=== PATIENT | male | born 1950 | race Caucasian/White ===

== ENCOUNTER 2016-11-24 22:22 | Emergency (ER) | payer MEDICARE, OTHER ==
[2016-11-24] MEDS ORDERED: Albuterol/Ipratropium 3.0-0.5 MG/3 ML Neb Soln NEB ONE (23:10)
[2016-11-24] MEDS ORDERED: Sodium Chloride 0.9% 1,000 ML IV ONE (23:15)
[2016-11-24] MEDS ORDERED: Sodium Chloride 0.9% 2.5 ML Syringe FLUSH PRN ×2 (23:15)
[2016-11-24] MEDS ORDERED: Sodium Chloride 0.9% 10 ML Syringe FLUSH PRN ×2 (23:15)
[2016-11-25 00:01] LABS: CHLORIDE,CL 103 mmol/L (98-110); SODIUM,NA 139 mmol/L (136-146)
[2016-11-25] MEDS ORDERED: methylPREDNISolone Sodium Succinate 125 MG/2 ML SDV IVPUSH ONE (01:20)
[2016-11-25] MEDS ORDERED: Levofloxacin 250 MG Tab PO ONE (01:25)
--- NOTE | 2016-11-25 01:29 | EDM.PDOC ---
ED HISTORY OF PRESENT ILLNESS - General Chief Complaint: Respiratory Problem Stated Complaint: SHORTNESS OF BREATH Time Seen by Provider: 11/24/16 22:24 Source of Information: Reports: Patient History Limitations: Reports: No limitations - History of Present Illness INITIAL COMMENTS - FREE TEXT/NARRATIVE: 58-year-old male with a history of COPD now presents to the emergency department complaining of wheezing refractory to home meds and patient uses nebulizer treatment at and had suboptimal relief. Denies chest pain. Fevers chills sweats or shaking chills. Patient does report productive cough. - Related Data Allergies/ADRs: Allergies Allergy/AdvReac Type Severity Reaction Status Date / Time No Known Allergies Allergy Verified 11/24/16 22:38 Home Meds: Home Meds Levofloxacin [Levaquin] 750 mg PO DAILY #5 tablet 11/25/16 [Rx] Prednisone [IMW: predniSONE] 60 mg PO WITHBREAKFAST #5 tab 11/25/16 [Rx] Past Medical History HEENT History: Reports: Impaired vision Other HEENT History: glasses Cardiovascular History: Reports: Hypertension Respiratory History: Reports: Other (see below) Other Respiratory History: "frozen diaphram" used nebs at home recently for sob/ wheezing Musculoskeletal History: Reports: Back pain, chronic - Infectious Disease History Infectious Disease History: Reports: Chicken pox, Measles, Mumps - Past Surgical History Musculoskeletal Surgical History: Reports: Other (see below) Other Musculoskeletal Surgeries/Procedures:: back and knee surgery Social & Family History - Family History Family Medical History: Noncontributory - Tobacco Use Smoking Status *Q: Former Smoker Tobacco Use Comment: "haven't smoked since I was a kid" - Caffeine Use Caffeine Use: Reports: Coffee - Recreational Drug Use Recreational Drug Use: No ED ROS GENERAL - Review of Systems Review Of Systems: See Below (Per history of present illness) ED EXAM, GENERAL - Physical Exam Exam: See Below (Per history of present illness) Course - Vital Signs Text/Narrative:: Signs and symptoms consistent with COPD exacerbation in a patient with a known history of this.. Patient with mild tachypnea and bilateral bronchospasm. Normal pulse ox on room air. Chest x-ray unremarkable. EKG benign. Full workup with elevated white blood cell count at 18 and BUN and creatinine 25 and 1.0. IV fluids given. Patient well-appearing ambulate around the emergency department requesting discharge home after treatment. He feels vastly improved and is comfortable with outpatient management. Strict return precautions given Last Recorded V/S: Last Vital Signs Temp 37.6 C 11/24/16 22:31 Pulse 79 11/24/16 22:31 Resp 28 H 11/24/16 22:31 BP 168/78 H 11/24/16 22:31 Pulse Ox 94 L 11/24/16 22:31 - Orders/Labs/Meds Orders: Active Orders 24 hr Category Date Time Status EKG Documentation Completion [RC] STAT Care 11/24/16 23:15 Active Peripheral IV Care [RC] . DIRECTED Care 11/24/16 23:15 Active RT Aerosol Therapy [RC] ASDIRECTED Care 11/24/16 23:11 Active Chest 1V Frontal [CR] Stat Exams 11/24/16 23:15 Taken Sodium Chloride 0.9% [Saline Flush] Med 11/24/16 23:15 Active 10 ml FLUSH ASDIRECTED PRN Sodium Chloride 0.9% [Saline Flush] Med 11/24/16 23:15 Active 10 ml FLUSH ASDIRECTED PRN Sodium Chloride 0.9% [Saline Flush] Med 11/24/16 23:15 Active 2.5 ml FLUSH ASDIRECTED PRN Sodium Chloride 0.9% [Saline Flush] Med 11/24/16 23:15 Active 2.5 ml FLUSH ASDIRECTED PRN Peripheral IV Insertion Adult [OM.PC] Stat Oth 11/24/16 23:15 Ordered Medication Orders Sodium Chloride (Saline Flush) 10 ml FLUSH ASDIRECTED PRN PRN Reason: Keep Vein Open Sodium Chloride (Saline Flush) 2.5 ml FLUSH ASDIRECTED PRN PRN Reason: Keep Vein Open Sodium Chloride (Saline Flush) 10 ml FLUSH ASDIRECTED PRN PRN Reason: Keep Vein Open Sodium Chloride (Saline Flush) 2.5 ml FLUSH ASDIRECTED PRN PRN Reason: Keep Vein Open Labs: Laboratory Tests 11/24/16 11/24/16 11/24/16 Range/Units 23:30 23:30 23:30 WBC 18.59 H (4.0-11.0) K/uL RBC 5.14 (4.50-5.90) M/uL Hgb 14.8 (13.0-17.0) g/dL Hct 44.6 (38.0-50.0) % MCV 86.8 (80.0-98.0) fL MCH 28.8 (27.0-32.0) pg MCHC 33.2 (31.0-37.0) g/dL RDW Std Deviation 45.8 (28.0-62.0) fl RDW Coeff of Alex 15 (11.0-15.0) % Plt Count 164 (150-400) K/uL MPV 9.60 (7.40-12.00) fL Neut % (Auto) 68.5 (48.0-80.0) % Lymph % (Auto) 23.0 (16.0-40.0) % Lee % (Auto) 7.3 (0.0-15.0) % Eos % (Auto) 0.9 (0.0-7.0) % Baso % (Auto) 0.3 (0.0-1.5) % Neut # 12.7 H (1.4-5.7) K/uL Lymph # 4.3 H (0.6-2.4) K/uL Lee # 1.4 H (0.0-0.8) K/uL Eos # 0.2 (0.0-0.7) K/uL Baso # 0.1 (0.0-0.1) K/uL Nucleated RBC % 0.0 /100WBC Nucleated RBCs # 0 K/uL ABG pH (7.35-7.45) ABG pCO2 (35-45) mmHG ABG pO2 (75-100) mmHG ABG HCO3 (22-26) mEq/L ABG Total CO2 ABG Base Excess (-2.0-2.0) Sodium 139 (136-146) mmol/L Potassium 4.4 (3.5-5.1) mmol/L Chloride 103 (98-110) mmol/L Carbon Dioxide 24 (21-31) mmol/L BUN 25 H (6.0-23.0) mg/dL Creatinine 1.0 (0.6-1.5) mg/dL Est Cr Clr Drug Dosing 68.40 mL/min Estimated GFR (MDRD) > 60.0 ml/min Glucose 123 H (60-110) mg/dL Calcium 8.9 (8.8-10.8) mg/dL Total Bilirubin 0.5 (0.1-1.5) mg/dL AST 23 (5-40) IU/L ALT 26 (8-54) IU/L Alkaline Phosphatase 73 (40-150) Troponin I < 0.10 (0.0-0.29) NG/ML Total Protein 7.3 (6.0-8.0) g/dL Albumin 4.2 (3.4-4.8) g/dL Globulin 3.1 (2.0-3.5) g/dL Albumin/Globulin Ratio 1.4 (1.3-2.8) Urine Color Urine Appearance Urine pH (5.0-8.0) Ur Specific [place] (1.001-1.035) Urine Protein (NEGATIVE) mg/dL Urine Glucose (UA) (NEGATIVE) mg/dL Urine Ketones (NEGATIVE) mg/dL Urine Occult Blood (NEGATIVE) Urine Nitrite (NEGATIVE) Urine Bilirubin (NEGATIVE) Urine Urobilinogen (<2.0) EU/dL Ur Leukocyte Esterase (NEGATIVE) Urine RBC (0-2/HPF) Urine WBC (0-5/HPF) Ur Epithelial Cells (NONE-FEW) Urine Bacteria (NEGATIVE) 11/25/16 11/25/16 Range/Units 00:05 00:10 WBC (4.0-11.0) K/uL RBC (4.50-5.90) M/uL Hgb (13.0-17.0) g/dL Hct (38.0-50.0) % MCV (80.0-98.0) fL MCH (27.0-32.0) pg MCHC (31.0-37.0) g/dL RDW Std Deviation (28.0-62.0) fl RDW Coeff of Alex (11.0-15.0) % Plt Count (150-400) K/uL MPV (7.40-12.00) fL Neut % (Auto) (48.0-80.0) % Lymph % (Auto) (16.0-40.0) % Lee % (Auto) (0.0-15.0) % Eos % (Auto) (0.0-7.0) % Baso % (Auto) (0.0-1.5) % Neut # (1.4-5.7) K/uL Lymph # (0.6-2.4) K/uL Lee # (0.0-0.8) K/uL Eos # (0.0-0.7) K/uL Baso # (0.0-0.1) K/uL Nucleated RBC % /100WBC Nucleated RBCs # K/uL ABG pH 7.430 (7.35-7.45) ABG pCO2 38 (35-45) mmHG ABG pO2 77 (75-100) mmHG ABG HCO3 25 (22-26) mEq/L ABG Total CO2 22.0 ABG Base Excess 0.7 (-2.0-2.0) Sodium (136-146) mmol/L Potassium (3.5-5.1) mmol/L Chloride (98-110) mmol/L Carbon Dioxide (21-31) mmol/L BUN (6.0-23.0) mg/dL Creatinine (0.6-1.5) mg/dL Est Cr Clr Drug Dosing mL/min Estimated GFR (MDRD) ml/min Glucose (60-110) mg/dL Calcium (8.8-10.8) mg/dL Total Bilirubin (0.1-1.5) mg/dL AST (5-40) IU/L ALT (8-54) IU/L Alkaline Phosphatase (40-150) Troponin I (0.0-0.29) NG/ML Total Protein (6.0-8.0) g/dL Albumin (3.4-4.8) g/dL Globulin (2.0-3.5) g/dL Albumin/Globulin Ratio (1.3-2.8) Urine Color YELLOW Urine Appearance CLEAR Urine pH 6.0 (5.0-8.0) Ur Specific [place] 1.020 (1.001-1.035) Urine Protein NEGATIVE (NEGATIVE) mg/dL Urine Glucose (UA) NEGATIVE (NEGATIVE) mg/dL Urine Ketones NEGATIVE (NEGATIVE) mg/dL Urine Occult Blood NEGATIVE (NEGATIVE) Urine Nitrite NEGATIVE (NEGATIVE) Urine Bilirubin NEGATIVE (NEGATIVE) Urine Urobilinogen 0.2 (<2.0) EU/dL Ur Leukocyte Esterase NEGATIVE (NEGATIVE) Urine RBC 0-1 (0-2/HPF) Urine WBC 0-2 (0-5/HPF) Ur Epithelial Cells RARE (NONE-FEW) Urine Bacteria RARE (NEGATIVE) Meds: Medications Generic Name Dose Route Start Last Admin Trade Name Freq PRN Reason Stop Dose Admin Sodium Chloride 10 ml 11/24/16 23:15 Saline Flush FLUSH ASDIRECTED PRN Keep Vein Open Sodium Chloride 2.5 ml 11/24/16 23:15 Saline Flush FLUSH ASDIRECTED PRN Keep Vein Open Sodium Chloride 10 ml 11/24/16 23:15 Saline Flush FLUSH ASDIRECTED PRN Keep Vein Open Sodium Chloride 2.5 ml 11/24/16 23:15 Saline Flush FLUSH ASDIRECTED PRN Keep Vein Open Discontinued Medications Generic Name Dose Route Start Last Admin Trade Name Freq PRN Reason Stop Dose Admin Albuterol/Ipratropium 3 ml 11/24/16 23:10 11/24/16 23:17 Duoneb 3.0-0.5 Mg/3 Ml NEB 11/24/16 23:11 3 ml ONETIME ONE Administration Sodium Chloride 1,000 mls @ 999 mls/hr 11/24/16 23:15 11/24/16 23:34 Normal Saline IV 11/25/16 00:15 999 mls/hr .Bolus ONE Administration Levofloxacin 750 mg 11/25/16 01:25 11/25/16 01:38 Levaquin PO 11/25/16 01:26 Not Given ONETIME ONE Levofloxacin 750 mg 11/25/16 01:31 11/25/16 01:37 Levaquin PO 11/25/16 01:32 750 mg NOW STA Administration Methylprednisolone Sodium Succinate 125 mg 11/25/16 01:20 11/25/16 01:31 Solu-Medrol IVPUSH 11/25/16 01:21 125 mg ONETIME ONE Administration Departure - Departure Time of Disposition: 01:24 Disposition: Home, Self-Care 01 Condition: good Clinical Impression: COPD exacerbation, Acute dyspnea, Leukocytosis, Prerenal azotemia Prescriptions: Levofloxacin [Levaquin] 750 mg PO DAILY #5 tablet Prednisone [IMW: predniSONE] 60 mg PO WITHBREAKFAST #5 tab Instructions: Chronic Obstructive Pulmonary Disease Exacerbation, [id number] Referrals: PCP,None [Primary Care Provider] - Forms: ED Department Discharge Additional Instructions: Your productive cough suggests that your COPD attack is likely the result of a lung infection. Is possible that this may be a viral infection with however we cannot rule out the possibility of a bacterial cause. For this reason we are giving you a prescription for Levaquin. Finish this medicine as prescribed once a day starting tomorrow. Finish prednisone as prescribed. And use your own nebulize therapy at home if necessary follow up with your doctor tomorrow and return immediately for new severe or worsening symptoms - My Orders Last 24 Hours: My Active Orders 11/24/16 23:11 RT Aerosol Therapy [RC] ASDIRECTED 11/24/16 23:15 EKG Documentation Completion [RC] STAT Peripheral IV Care [RC] . DIRECTED Chest 1V Frontal [CR] Stat Sodium Chloride 0.9% [Saline Flush] 10 ml FLUSH ASDIRECTED PRN Sodium Chloride 0.9% [Saline Flush] 10 ml FLUSH ASDIRECTED PRN Sodium Chloride 0.9% [Saline Flush] 2.5 ml FLUSH ASDIRECTED PRN Sodium Chloride 0.9% [Saline Flush] 2.5 ml FLUSH ASDIRECTED PRN Peripheral IV Insertion Adult [OM.PC] Stat - Assessment/Plan Last 24 Hours: My Active Orders 11/24/16 23:11 RT Aerosol Therapy [RC] ASDIRECTED 11/24/16 23:15 EKG Documentation Completion [RC] STAT Peripheral IV Care [RC] . DIRECTED Chest 1V Frontal [CR] Stat Sodium Chloride 0.9% [Saline Flush] 10 ml FLUSH ASDIRECTED PRN Sodium Chloride 0.9% [Saline Flush] 10 ml FLUSH ASDIRECTED PRN Sodium Chloride 0.9% [Saline Flush] 2.5 ml FLUSH ASDIRECTED PRN Sodium Chloride 0.9% [Saline Flush] 2.5 ml FLUSH ASDIRECTED PRN Peripheral IV Insertion Adult [OM.PC] Stat
[2016-11-25] MEDS ORDERED: Levofloxacin 500 MG Tab PO STA (01:31)
[2016-11-25 01:59] VITALS: BP 134/65
--- NOTE | 2016-11-26 17:59 | CR ---
EXAM DATE: 11/24/16 PATIENT'S AGE: 66 Patient: ISIDRO MCDONALD Facility: [place], [place] Site . Site : [id number] Study: XRay Chest [id number] 11:29:57 PM Ordering Physician: Fernando Saab Final Report: Indication: Shortness of breath Technique: Chest 1 view. Comparison: July 25 2012 Findings: Cardiovascular and mediastinum: Heart size and vasculature are normal in caliber and appearance. Mediastinum is within normal limits. Lungs and pleural space: Lungs are clear. No sign of infiltrate or mass. No sign of pleural effusion. No pneumothorax. Stable elevation of right hemidiaphragm. Bones and soft tissues: No significant findings. Impression: No sign of acute disease. Dictated by Dennise Florez MD @ Nov 25 2016 12:00AM (Electronic Signature) Report Signed by Proxy and Original Signed Document filed in the Medical Record. MTDD
== END 2016-11-25 01:50 | disposition home or self-care (01) ==
LOC: MW.ED 22:22
DX: J44.1 Chronic obstructive pulmonary disease with (acute) exacerbation (principal); R06.00 Dyspnea, unspecified; D72.829 Elevated white blood cell count, unspecified; R79.89 Other specified abnormal findings of blood chemistry; Z79.899 Other long term (current) drug therapy; Z98.890 Other specified postprocedural states; Z87.891 Personal history of nicotine dependence
CPT/HCPCS: 36600; 71010; 80053; 81001; 82803; 84484; 85025; 93005; 96361; 96374; 99285; A9270; J2930; J7040; 99284